=== PATIENT | male | born 1950 | race Caucasian/White ===

== ENCOUNTER → 2023-01-27 | Outpatient (CLI) | payer MEDICARE ==
--- NOTE | 2023-01-27 13:56 | MR ---
EXAMINATION TYPE: MR brain wo con DATE OF EXAM: 01/27/2023 1:25 PM COMPARISON: NONE HISTORY: Dizziness, off balance for a few weeks FINDINGS: The ventricles, basal cisterns and sulci overlying the cerebral convexities are mildly enlarged. There is evidence of mild periventricular white matter ischemic demyelination. Remote deep white matter insults are also noted. Small punctate foci of increased signal at the left parietal-occipital junction on the right compatib le with acute small vascular insult. Additional small tiny punctate foci of increased signal within t he high right frontal lobe image 192 sequence [id number] and right parasagittal frontal lobe on the same ena ge. No evidence for cortical insult or additional areas There is no evidence for midline shift or mass effect. Acute intracranial hemorrhage or extra-axial collection is not evident. The paranasal sinuses and mastoid air cells are well-aerated. IMPRESSION: 1.Age-related atrophic and chronic small vessel ischemic change. 2. Small foci of increased signal on diffusion-weighted imaging within the right parietal occipital r egion as well as the high right frontal lobe as discussed above suspicious for small acute vascular i nsult.
== END | disposition home or self-care (01) ==
LOC: RADMRIMAIN 12:09
PROVIDERS: ATTEND Family Medicine
DX: G31.1 Senile degeneration of brain, not elsewhere classified (principal); I67.82 Cerebral ischemia; R55 Syncope and collapse; R42 Dizziness and giddiness
CPT/HCPCS: 70551